=== PATIENT | male | born 1975 ===

== ENCOUNTER 2017-03-27 22:52 | Emergency (ER) | payer OTHER ==
[~2017-03-27] VITALS: Ht 185.4 cm; Wt 122.7 kg
[~2017-03-27 22:52] MED LIST: ASPI-351 PO; DIAZ2TAB PO; HYDR-4003 PO; METH750T3 PO; NPR500T PO; TOPR25T PO
[2017-03-27 22:55] VITALS: BP 132/81; PULSE 131; RESP 20; O2SAT 99
[2017-03-27 23:26] LABS: BASOPHILS % (AUTO) 0.8 % (0-3); EOSINOPHILS % (AUTO) 1.8 % (0-5); MONOCYTES % (AUTO) 6.2 % (4-12); Mean Corpuscular Hemoglobin 28.4 pg (27.0-35.0); Mean Corpuscular Volume 80.7 fL (81-100); NEUTROPHILS % (AUTO) 61.1 % (40-74); Platelet Count 236 bil/L (150-400)
--- NOTE | 2017-03-27 23:33 | ED.REPORT ---
HPI-General Illness Date of Service Mar 27, 2017 ED Provider: Dr. Mercado Pt is a 41 year old male with a hx of arrhythmias and anxiety presenting to the ED via EMS complaining of sudden onset chest pain, palpitations and dizziness onset 1 hour ago after ingesting a THC cookie and Viagra. He states that this was his first time eating an edible. Denies fever, chills, SOB, wheezing, nausea or vomiting. Nursing Notes Stated Complaint: CHEST PAIN Chief Complaint: Dysrhythmia/Cardiac Nursing Notes Reviewed: Yes Allergies: Coded Allergies: No Known Allergies (Unverified Allergy, Unknown, 09/18/15) Scheduled Aspirin-Expunged Drug, Do Not Renew! (Aspirin-Expunged Drug, Do Not Renew!) 325 Mg Tablet 325 MG PO DAILY Metoprolol Suc-Expunged Drug, Do Not Renew! (Metoprolol Suc-Expunged Drug, Do Not Renew!) 25 Mg Tber 25 MG PO DAILY Scheduled PRN Diazepam (Valium) 2 Mg Tablet 2 MG PO TID PRN PRN For Anxiety Hydrocodone-Acetaminophen 5-325 mg (Hydrocodone-Acetaminophen 5-325 mg) 1 Each Tablet 1 TABLET PO Q4H PRN PRN For Pain Methocarbamol (Methocarbamol) 750 Mg Tablet 750 MG PO QID PRN PRN For Spasm Naproxen (Naproxen) 500 Mg Tab 500 MG PO BID PRN PRN For Pain General Time Seen by MD: 23:32 Chief Complaint Chest pain Hx Obtained From: Patient, EMS Arrived By: Ambulance Sudden in Onset?: Yes Onset Occurred: 1 - 4 hours ago Symptom Duration: Since onset Location: : Chest Quality: Painful Severity: Current: Moderate Severity: Maximum: Moderate Recent Healthcare: No recent doctor visit, No recent hospitalization Similar Sx Previous: No Past Medical History Past Medical History Anxiety Past Surgical History none reported Smoking History Never Smoker Social History Alcohol Use: "Social" Drug Use: Denies drug use Ambulatory Status Independent Review of Systems Full Review of Systems Constitutional: Denies: Chills, Fever Respiratory: Denies: Shortness of breath, Wheezing Cardiovascular: Reports: Chest pain, Palpitations GI: Denies: Nausea, Vomiting Neurologic: Reports: Dizziness Complete sys rev & neg: except as marked. Physical Exam Vital Signs Vital Signs Date Time Temp Pulse Resp B/P Pulse Ox O2 Delivery O2 Flow Rate FiO2 03/28/17 02:10 105 16 120/72 96 Room Air 03/27/17 22:55 131 20 132/81 99 Room Air Initial VS: Reviewed ENT: Mucous membranes moist, Conjunctiva normal, No scleral icterus Neck: Supple, Non-tender, Full range of motion Respiratory: Breath sounds normal, Clear to auscultation, No respiratory distress Abdomen / GI: Soft, Non-tender, No guarding, No rebound, No distention Lymphatic: No lymphadenopathy Extremities: Vascular intact, Neuro intact, No swelling, No tenderness Skin: Warm, Dry, No cyanosis Neurologic: Alert, Oriented, Nonfocal Psychiatric: Mood/affect normal, Behavior normal, Normal thought content General/Constitutional: Awake, Alert Behavior: Positive: Anxious Head / Eyes: Atraumatic Injected sclera, 5 mm pupils modertely dilated Interpretation & Diagnostics Lab Results Interpretation Result Diagram: 03/27/178 03/27/17 2318 Test 03/27/17 23:18 White Blood Count 11.4th/mm3 (3.8-10.1) Red Blood Count 5.38mil/mm3 (4.40-5.80) Hemoglobin 15.3g/dL (13.8-17.2) Hematocrit 43.4% (41.0-50.0) Mean Corpuscular Volume 80.7fL (81-100) Mean Corpuscular Hemoglobin 28.4pg (27.0-35.0) Mean Corpuscular Hemoglobin Concent 35.3% (32.0-37.0) Red Cell Distribution Width 13.7% (12.3-15.4) Platelet Count 236bil/L (150-400) Neutrophils (%) (Auto) 61.1% (40-74) Lymphocytes (%) (Auto) 29.9% (14-46) Monocytes (%) (Auto) 6.2% (4-12) Eosinophils (%) (Auto) 1.8% (0-5) Basophils (%) (Auto) 0.8% (0-3) Sodium Level 139mEq/L (134-144) Potassium Level 3.9mEq/L (3.5-5.2) Chloride Level 100mEq/L (97-108) Carbon Dioxide Level 23mmol/L (18-29) Blood Urea Nitrogen 19mg/dL (6-24) Creatinine 0.94mg/dL (0.76-1.27) Estimat Glomerular Filtration Rate 94mL/min (>59) Glucose Level 193mg/dL (60-99) Calcium Level 9.1mg/dL (8.5-10.1) Magnesium Level 2.0mg/dL (1.6-2.6) Total Bilirubin 1.0mg/dL (0.0-1.2) Aspartate Amino Transf (AST/SGOT) 22U/L (0-50) Alanine Aminotransferase (ALT/SGPT) 24U/L (0-44) Alkaline Phosphatase 61U/L (25-150) Troponin T < 0.010ug/L (0.0-0.011) Total Protein 7.2g/dL (6.4-8.4) Albumin 4.4g/dL (3.4-5.0) ECG Interpretation ECG Interpretation: Sinus tachycardia with a rate of 119. Time: 23:10 Interpreted by: ED physician X-Ray Chest Interpretation Chest Xray Interpretation: Negative. View: Portable, 1 view Re-Eval/Medical Decision Med Decision/Clinical Course 41-year-old presents after eating a marijuana edible feeling strange and"afraid". Mildly tachycardic but no other significant findings. Improved with Ativan here. Discharged in stable condition for follow-up with PCP. Discontinue use of irritable marijuana, as the dose cannot be controlled. Time of Eval: 01:48 Patient Status: Condition improved Re-Evaluation/Progress Note: Pt feeling better. Discussed plan for discharge. Pt understands and agrees. Counseled Regarding: Diagnosis, Lab results, Need for follow-up, When/why to return to ED Discharge & Departure Primary Impression: Accidental cannabis overdose Encounter type: initial encounter Qualified Code: T40.7X1A - Poisoning by cannabis (derivatives), accidental (unintentional), initial encounter Disposition: Home Discharge Condition All VS Reviewed: Yes Condition: Improved Patient Instructions: Cannabis Abuse (ED) Additional Instructions: Duuuuude. Don't do that anymore. Sleep it off tonight. Life will be better tomorrow. Follow-up with your doctor in the office. Referrals: [facility] Scribe Attestation Portions of this note were transcribed by Andree Sorto. I, Dr. Mercado personally performed the history, physical exam and medical decision-making; I reviewed and confirmed the accuracy of the information in the transcribed note. Signed by: Amilcar Aguirre, 03/27/2017. copies to: KOLE YEE Christopher W MD Mar 27, 2017 23:33 ANDREE SORTO Mar 27, 2017 23:38
[2017-03-27] MEDS ORDERED: LORazepam 1 mg Tablet PO ONE (23:45)
[2017-03-27 23:56] LABS: TROPONIN T < 0.010 ug/L (0.0-0.011)
[2017-03-28 02:10] VITALS: BP 120/72; PULSE 105; RESP 16; O2SAT 96
--- NOTE | 2017-03-28 08:50 | DRSVH ---
PROCEDURE: X-RAY CHEST ONE VIEW, PORTABLE ([id number]) INDICATIONS: CHEST PAIN TECHNIQUE: One view of the chest was acquired. COMPARISON: [facility] Rose, CHEST 2VW, 01/21/2017, 5:05 PM. 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 Lungs and pleura: No pleural effusions or pneumothorax. Lungs are clear. Mediastinum: Mediastinal contours appear normal. Heart size is normal. Bones and chest wall: No suspicious bony lesions. Overlying soft tissues appear unremarkable. IMPRESSION: No acute disease is seen in the upright portable chest. Dictated by: Rafy Vasquez M.D. on 03/28/2017 at 8:48 Approved by: Rafy Vasquez M.D. on 03/28/2017 at 8:48
== END 2017-03-28 01:55 | disposition home or self-care (01) ==
LOC: SED 22:52
DX: T40.7X1A Poisoning by cannabis (derivatives), accidental (unintentional), initial encounter (principal); Y93.89 Activity, other specified; Y92.89 Other specified places as the place of occurrence of the external cause; Y99.8 Other external cause status; R00.2 Palpitations; R42 Dizziness and giddiness; F41.9 Anxiety disorder, unspecified